=== PATIENT | male | born 1970 | race Caucasian/White ===

== ENCOUNTER 2018-04-03 05:33 | Emergency (ER) | payer SELFPAY ==
[2018-04-03] MEDS ORDERED: NA CHLORIDE 0.9% 1,000 ML ONE (06:14)
[2018-04-03 06:16] LABS: Absolute Lymphocytes (CBC) 1.6 K/uL (0.7-4.9); Absolute Monocytes 0.8 K/uL (0.1-1.3); Basophils % 0.5 % (0-1.3); Eosinophils % 1.9 % (0-4.4); Hematocrit 44.1 % (39.6-49.0); Lymphocytes % 18.1 % (15.3-44.8); MPV 7.9 fL (7.6-11.3); RBC Red Blood Cell Count 4.89 M/uL (4.33-5.43)
[2018-04-03 06:21] LABS: Protime INR 1.05
[2018-04-03 07:16] LABS: ALT/SGPT 23 U/L (12-78); AST/SGOT 18 U/L (15-37); Albumin 3.1 g/dL (3.4-5.0); Alkaline Phosphatase 86 U/L (45-117); BUN Blood Urea Nitrogen 24 mg/dL (7-18); Bicarbonate 26 mmol/L (21-32); Bilirubin Direct 0.1 mg/dL (0-0.2); Bilirubin Total 0.4 mg/dL (0.2-1.0); Glucose Level 131 mg/dL (74-106); Potassium 3.8 mmol/L (3.5-5.1); Protein, Total 6.9 g/dL (6.4-8.2); Sodium Level 144 mmol/L (136-145)
--- NOTE | 2018-04-03 07:23 | EDPHYS ---
Physician Documentation [facility] Name: Bob Hernández Age: 48 yrs Sex: Male : 1970 Arrival Date: 04/03/2018 Time: 05:34 Bed 3 Private MD: ED Physician Kian Lamb HPI: 04/03 06:06 This 48 yrs old Male presents to ER via EMS with complaints of Suicidal mae Ideation. 06:06 The patient presents to the emergency department with a history of substance abuse, mae Type: methamphetamines, xanax, meth, pot, herion. Onset: The symptoms/episode began/occurred 3 month(s) ago. Past psychiatric history: substance abuse. Associated signs and symptoms: The patient has no apparent associated signs or symptoms. The patient has not experienced similar symptoms in the past, The patient has experienced similar episodes in the past, multiple times. Historical: - Allergies: 05:39 No Known Allergies; ak1 - Home Meds: 05:39 Xanax Oral [Active]; Adderall XR Oral [Active]; ak1 - PMHx: 05:39 Hypertension; suicidal ideations; ak1 - PSHx: 05:39 Unable to obtain; ak1 - Immunization history:: Adult Immunizations unknown. - Social history:: Smoking status: Patient uses tobacco products, smokes one pack cigarettes per day. Patient uses street drugs, marijuana, Methamphetamine (Meth) Patient/guardian denies using alcohol. - Ebola Screening: : No symptoms or risks identified at this time. - Family history:: not pertinent. ROS: 06:06 Constitutional: Negative for fever, chills, and weight loss, Eyes: Negative for injury, mae pain, redness, and discharge, ENT: Negative for injury, pain, and discharge, Neck: Negative for injury, pain, and swelling, Cardiovascular: Negative for chest pain, palpitations, and edema, Respiratory: Negative for shortness of breath, cough, wheezing, and pleuritic chest pain, Abdomen/GI: Negative for abdominal pain, nausea, vomiting, diarrhea, and constipation, Back: Negative for injury and pain, : Negative for injury, bleeding, discharge, and swelling, MS/Extremity: Negative for injury and deformity, Skin: Negative for injury, rash, and discoloration, Neuro: Negative for headache, weakness, numbness, tingling, and seizure, Allergy/Immunology: Negative for hives, rash, and allergies, Endocrine: Negative for neck swelling, polydipsia, polyuria, polyphagia, and marked weight changes, Hematologic/Lymphatic: Negative for swollen nodes, abnormal bleeding, and unusual bruising. 06:06 Psych: Positive for anxiety. Exam: 06:06 Constitutional: This is a well developed, well nourished patient who is awake, alert, mae and in no acute distress. Head/Face: Normocephalic, atraumatic. Eyes: Pupils equal round and reactive to light, extra-ocular motions intact. Lids and lashes normal. Conjunctiva and sclera are non-icteric and not injected. Cornea within normal limits. Periorbital areas with no swelling, redness, or edema. ENT: Nares patent. No nasal discharge, no septal abnormalities noted. Tympanic membranes are normal and external auditory canals are clear. Oropharynx with no redness, swelling, or masses, exudates, or evidence of obstruction, uvula midline. Mucous membranes moist. Neck: Trachea midline, no thyromegaly or masses palpated, and no cervical lymphadenopathy. Supple, full range of motion without nuchal rigidity, or vertebral point tenderness. No Meningismus. Chest/axilla: Normal chest wall appearance and motion. Nontender with no deformity. No lesions are appreciated. Cardiovascular: Regular rate and rhythm with a normal S1 and S2. No gallops, murmurs, or rubs. Normal PMI, no JVD. No pulse deficits. Respiratory: Lungs have equal breath sounds bilaterally, clear to auscultation and percussion. No rales, rhonchi or wheezes noted. No increased work of breathing, no retractions or nasal flaring. Abdomen/GI: Soft, non-tender, with normal bowel sounds. No distension or tympany. No guarding or rebound. No evidence of tenderness throughout. Back: No spinal tenderness. No costovertebral tenderness. Full range of motion. Male : Normal genitalia with no discharge or lesions. Skin: Warm, dry with normal turgor. Normal color with no rashes, no lesions, and no evidence of cellulitis. Vital Signs: 05:39 BP 134 / 97; Pulse 78; Resp 16; Temp 97.9(O); Pulse Ox 99% on R/A; Weight 77.11 kg (R); ak1 Height 5 ft. 10 in. (177.80 cm) (R); Pain 0/10; 07:34 BP 134 / 91; Pulse 76; Resp 14; Pulse Ox 100% ; bp 05:39 Body Mass Index 24.39 (77.11 kg, 177.80 cm) ak1 MDM: 05:44 Patient medically screened. [facility] 06:06 Data reviewed: vital signs, nurses notes, lab test result(s), EKG, radiologic studies, mae plain films. 04/03 05:46 Order name: Acetaminophen [facility] 04/03 05:46 Order name: Basic Metabolic Panel [facility] 04/03 05:46 Order name: CBC with Diff; Complete Time: 06:39 [facility] 04/03 05:46 Order name: ETOH Level; Complete Time: 07:12 [facility] 04/03 05:46 Order name: Hepatic Function [facility] 04/03 05:46 Order name: PT-INR; Complete Time: 06:39 [facility] 04/03 05:46 Order name: Ptt, Activated; Complete Time: 06:39 [facility] 04/03 05:46 Order name: Salicylate; Complete Time: 07:01 [facility] 04/03 05:46 Order name: EKG; Complete Time: 05:47 [facility] 04/03 05:46 Order name: EKG - Nurse/Tech; Complete Time: 06:10 [facility] 04/03 05:46 Order name: IV Saline Lock; Complete Time: 06:10 [facility] 04/03 05:46 Order name: C Spine Ap/Lat XRAY [facility] 04/03 05:46 Order name: Labs collected and sent; Complete Time: 06:10 [facility] 04/03 06:22 Order name: Labs - recollect needed; Complete Time: 07:24 eb Administered Medications: 06:08 Drug: NS 0.9% 1000 ml Route: IV; Rate: 1 bolus; Site: left hand; ea 07:36 Follow up: IV Status: Completed infusion; IV Intake: 1000ml bp Disposition: 04/03/18 07:22 Discharged to Home. Impression: Abuse of non-psychoactive substances, Suicidal ideations - resolved, Unspecified kidney failure - renal insufficency. - Condition is Stable. - Discharge Instructions: Stimulant Use Disorder-Amphetamines, Substance Use Disorder, Suicidal Feelings: How to Help Yourself, Helping Someone Who is Suicidal, Stimulant Use Disorder-Methamphetamines, Stress and Stress Management. - Medication Reconciliation Form, Thank You Letter, Antibiotic Education, Prescription Opioid Use form. - Follow up: Private Physician; When: 2 - 3 days; Reason: Recheck today's complaints, Continuance of care, Re-evaluation by your physician. Follow up: Jovan Beach MD; When: 2 - 3 days; Reason: Recheck today's complaints, Continuance of care, Re-evaluation by your physician. - Problem is new. - Symptoms have improved. Signatures: Dispatcher [employer] EDMS Kian Lamb MD MD cha Krenek, Amber RN RN ak1 Carline Garrido RN RN Lucian Castillo RN RN Digna Blankenship Corrections: (The following items were deleted from the chart) 07:23 07:22 04/03/2018 07:22 Discharged to Home. Impression: Abuse of non-psychoactive mae substances; Suicidal ideations - resolved; Unspecified kidney failure - renal insufficency. Condition is Fair. Discharge Instructions: Stimulant Use Disorder-Amphetamines, Substance Use Disorder, Suicidal Feelings: How to Help Yourself, Helping Someone Who is Suicidal, Stimulant Use Disorder-Methamphetamines, Stress and Stress Management. Forms are Medication Reconciliation Form, Thank You Letter, Antibiotic Education, Prescription Opioid Use. Follow up: Private Physician; When: 2 - 3 days; Reason: Recheck today's complaints, Continuance of care, Re-evaluation by your physician. Problem is new. Symptoms have improved. [facility] 07:37 07:23 04/03/2018 07:22 Discharged to Home. Impression: Abuse of non-psychoactive bp substances; Suicidal ideations - resolved; Unspecified kidney failure - renal insufficency. Condition is Stable. Discharge Instructions: Stimulant Use Disorder-Amphetamines, Substance Use Disorder, Suicidal Feelings: How to Help Yourself, Helping Someone Who is Suicidal, Stimulant Use Disorder-Methamphetamines, Stress and Stress Management. Forms are Medication Reconciliation Form, Thank You Letter, Antibiotic Education, Prescription Opioid Use. Follow up: Private Physician; When: 2 - 3 days; Reason: Recheck today's complaints, Continuance of care, Re-evaluation by your physician. Follow up: Jovan Beach; When: 2 - 3 days; Reason: Recheck today's complaints, Continuance of care, Re-evaluation by your physician. Problem is new. Symptoms have improved. mae
--- NOTE | 2018-04-03 07:23 | ER ---
Nurse's Notes [facility] Name: Bob Hernández Age: 48 yrs Sex: Male : 1970 Arrival Date: 04/03/2018 Time: 05:34 Bed 3 Private MD: Diagnosis: Abuse of non-psychoactive substances;Suicidal ideations-resolved;Unspecified kidney failure-renal insufficency Presentation: 04/03 05:30 Presenting complaint: EMS states: pt was in custody in the back of COUNTS INCLUDE 234 BEDS AT THE [facility] patrol car, pt ak1 wrapped a seat belt around his neck. pt stated he "wants to " pt arrived c-collar and back boarded. pt admits to meth use, marjana use, xanax use and pervious suicide attempts in which he refused to speak about. pt cleared from back board per Dr. Lamb at 0534. 05:30 Transition of care: patient was not received from another setting of care. Onset of ak1 symptoms was April 03, 2018. Risk Assessment: Do you want to hurt yourself or someone else? Patient reports desire/thoughts of hurting themselves or someone else. Provider notified. Initial Sepsis Screen: Does the patient meet any 2 criteria? No. Patient's initial sepsis screen is negative. Does the patient have a suspected source of infection? No. Patient's initial sepsis screen is negative. Care prior to arrival: c- collar and back board. pt remains in police custody in handcuffs. 05:30 Method Of Arrival: EMS: [facility] ak1 05:30 Acuity: DIANN 2 ak1 Triage Assessment: 05:39 General: Appears in no apparent distress. Behavior is calm, Reports drug use and ak1 previous suicidal ideations. Pain: Denies pain. EENT: Throat redness noted to outside of neck due to attempted strangulation. no resp distress. . Neuro: Level of Consciousness is awake, alert, obeys commands, Oriented to person, place, time, situation, Bush Regenerator are equal bilaterally Moves all extremities. Speech is normal. Cardiovascular: No deficits noted. Respiratory: No deficits noted. GI: No signs and/or symptoms were reported involving the gastrointestinal system. : No signs and/or symptoms were reported regarding the genitourinary system. Derm: redness to neck as seen under c-collar due to pt placing seat belt around his neck in the back of the police car. Musculoskeletal: No signs and/or symptoms reported regarding the musculoskeletal system. Historical: - Allergies: 05:39 No Known Allergies; ak1 - Home Meds: 05:39 Xanax Oral [Active]; Adderall XR Oral [Active]; ak1 - PMHx: 05:39 Hypertension; suicidal ideations; ak1 - PSHx: 05:39 Unable to obtain; ak1 - Immunization history:: Adult Immunizations unknown. - Social history:: Smoking status: Patient uses tobacco products, smokes one pack cigarettes per day. Patient uses street drugs, marijuana, Methamphetamine (Meth) Patient/guardian denies using alcohol. - Ebola Screening: : No symptoms or risks identified at this time. - Family history:: not pertinent. Screenin:47 Abuse screen: Denies threats or abuse. Denies injuries from another. Nutritional ak1 screening: No deficits noted. Tuberculosis screening: No symptoms or risk factors identified. Fall Risk None identified. Assessment: 05:50 General: Appears in no apparent distress. Behavior is calm, cooperative, appropriate ea for age. Pain: Complains of pain in neck. Neuro: Level of Consciousness is awake, alert, obeys commands, Oriented to person, place, time, situation. Cardiovascular: Patient's skin is warm and dry. Respiratory: Airway is patent Respiratory effort is even, unlabored, Respiratory pattern is regular, symmetrical. GI: No signs and/or symptoms were reported involving the gastrointestinal system. : No signs and/or symptoms were reported regarding the genitourinary system. EENT: No signs and/or symptoms were reported regarding the EENT system. Derm: Skin is pink, warm \\T\\ dry. Musculoskeletal: Circulation, motion, and sensation intact. 06:50 Reassessment: Pt resting with eyes closed, respirations even and unlabored. chest ea expansions even and symmetrical. No s/s of pain or discomfort noted at this time. 07:00 Reassessment: RECD REPORT FROM CARLINE GROVE. 48YO WM P/W ATTEMPTED SELF-STRANGULATION IN PD bp CUSTODY. ALL CURRENT STUDIES COMPLETED, RESULTS PENDING. PD REMAINS AT B/S, PT REMAINS IN CUSTODY. 07:34 Reassessment: PT D/C IN POLICE CUSTODY, PT REFUSING TO SIGN D/C PAPERS OR SPEAK TO bp STAFF. Psych: 05:44 Subjective: Patient's mood is flat Delusions are denied, Hallucinations are denied ak1 Having thoughts of suicide. pt attempts to strangle himself with a seat belt in the back of the patrol car. Objective: Patient is cooperative, guarded, using poor eye contact, Speech is slow, soft, Affect is flat. Interventions: Removed personal items and placed in bag. Patient placed in hospital gown. Searched person for dangerous items. pt remains in PD hand cuffs, cuffed to the front of his body. Suicide Risk Assessment: Sad Person Scale: Sex of patient: Male: Score 1 point. Age of patient: Score 0 point if patient falls outside of specified age parameters. Depression: Score 0 point if signs of depression are not present. Previous Attempt: Score 1 point if patient has previously attempted suicide. Substance Abuse: Score 1 point if patient abuses alcohol or drugs. Safety Checks: Personal items have been removed. Door is open. PD at bedside. Patient uses marijuana Patient uses methamphetamines 15 minuets prior to arrest Patient uses tobacco. Commitment: pt in PD custody at this time. Vital Signs: 05:39 BP 134 / 97; Pulse 78; Resp 16; Temp 97.9(O); Pulse Ox 99% on R/A; Weight 77.11 kg (R); ak1 Height 5 ft. 10 in. (177.80 cm) (R); Pain 0/10; 07:34 BP 134 / 91; Pulse 76; Resp 14; Pulse Ox 100% ; bp 05:39 Body Mass Index 24.39 (77.11 kg, 177.80 cm) ak1 ED Course: 05:34 Patient arrived in ED. ak1 05:37 Triage completed. ak1 05:39 Arm band placed on Patient placed in an exam room, on a stretcher, on pulse oximetry, ak1 Patient notified of wait time Patient remains in PD custody restrained with handcuffs to the front of his body. 05:44 Kian Lamb MD is Attending Physician. [facility] 05:47 Patient has correct armband on for positive identification. Placed in gown. Bed in low ak1 position. Call light in reach. Side rails up X2. PD officer at bedside. monitoring analyst on. Pulse ox on. NIBP on. 06:08 Carline Garrido, RN is Primary Nurse. lionel 06:08 Initial lab(s) drawn, by me, sent to lab. EKG done, by ED staff, reviewed by Kian Lamb MD. Inserted saline lock: 22 gauge in left hand, using aseptic technique. Blood collected. 06:37 C Spine Ap/Lat XRAY In Process Unspecified. EDGA 07:22 Jovan Beach MD is Referral Physician. mae 07:36 No provider procedures requiring assistance completed. IV discontinued, intact, bp bleeding controlled, No redness/swelling at site. Pressure dressing applied. Administered Medications: 06:08 Drug: NS 0.9% 1000 ml Route: IV; Rate: 1 bolus; Site: left hand; ea 07:36 Follow up: IV Status: Completed infusion; IV Intake: 1000ml bp Intake: 07:36 IV: 1000ml; Total: 1000ml. bp Outcome: 07:22 Discharge ordered by . mae 07:37 Discharged to Law Enforcement bp 07:37 Condition: stable 07:37 Discharge instructions given to patient, police, Instructed on discharge instructions, follow up and referral plans. Demonstrated understanding of instructions, follow-up care. 07:37 Patient left the ED. bp Signatures: Dispatcher [employer] EDGA Kian Lamb MD MD cha Krenek, Amber RN RN Carline Mullins, RN RN Lucian Castillo, RN RN bp
--- NOTE | 2018-04-03 08:45 | RAD REPORT ---
EXAM DESCRIPTION: RAD - C Spine Ap/Lat - 04/03/2018 6:37 am CLINICAL HISTORY: PAIN Neck injury and pain COMPARISON: No comparisons FINDINGS: Cervical bodies are normal in height and alignment.No fracture or acute bony process seen. Disc thinning with small posterior osteophytes at the lower cervical levels. No prevertebral soft tissue thickening or other suspicious soft tissue finding. IMPRESSION: Mild lower cervical degenerative change.
--- NOTE | 2018-04-03 10:21 | EKG ---
Test Date: 2018-04-03 Test Time: 05:56:48 [employer] Application Packager: SAMARA MEASUREMENT RESULTS: Intervals: Rate: 78 [place]: 132 QRSD: 84 QT: 398 QTc: 453 [employer]: P: 74 [place]: 132 QRS: 65 T: 48 INTERPRETIVE STATEMENTS: Normal sinus rhythm Normal ECG No previous ECG available for comparison Electronically Signed On 04-03-18 10:21:19 [employer]ICATION PLANT OPERATOR by Jerad Holland
== END 2018-04-03 07:37 | disposition home or self-care (01) ==
LOC: ER 05:33
DX: R45.851 Suicidal ideations (principal); F55.8 Abuse of other non-psychoactive substances; I10 Essential (primary) hypertension; N28.9 Disorder of kidney and ureter, unspecified; N19 Unspecified kidney failure; F17.210 Nicotine dependence, cigarettes, uncomplicated
CPT/HCPCS: 36415; 72040; 80048; 80076; 80320; 80329; 85025; 85610; 85730; 93005; 96360; 99285; J7030